=== PATIENT | male | born 1945 | race Caucasian/White ===

== ENCOUNTER 2017-03-23 05:39 | Inpatient (IN) | payer OTHER, MEDICAID ==
[~2017-03-23] VITALS: Ht 172.7 cm; Wt 83.6 kg
[~2017-03-23 05:39] MED LIST: FLO4 PO; GLU5 PO; LOT5 PO; PRE5 PO; ZOC10 PO
[2017-03-23 07:21] LABS: BASOPHIL % 0.4 % (0-2); PLATELET COUNT 199 x10^3mcL (130-400); RED CELL DISTRIBUTION WIDTH 13.5 % (11.5-14.5)
[2017-03-23 08:19] LABS: CALCIUM 8.9 mg/dL (8.5-10.1); CARBON DIOXIDE 25.1 mmol/L (21-32); CHLORIDE SERUM 101 mmol/L (98-107); GFR1 > 60 mL/min; GLUCOSE SERUM 165 mg/dL (74-106); POTASSIUM SERUM 4.3 mmol/L (3.5-5.1); SODIUM SERUM 136 mmol/L (136-145)
[2017-03-23 08:23] LABS: ALBUMIN 3.5 g/dL (3.4-5.0); ALKALINE PHOSPHATASE 77 U/L (46-116); ALT/SGPT 18 U/L (16-63); AMYLASE 61 U/L (25-115); AST/SGOT 24 U/L (15-37); BILIRUBIN TOTAL 0.4 mg/dL (0.20-1.00); LIPASE 276 IU/L (73-393); TOTAL PROTEIN, SERUM 7.9 g/dL (6.4-8.2)
[2017-03-23 10:08] LABS: microscopic required? YES; urine erythrocyte TRACE (NEGATIVE)
[2017-03-23 10:17] LABS: CHOLESTEROL/HDL RATIO 2.8; MAGNESIUM 1.9 mg/dL (1.8-2.4); PHOSPHOROUS 2.4 mg/dL (2.5-4.9)
[2017-03-23 10:18] LABS: AMPHETAMINE QUAL UR NONE DETECTED (NEG <=1000)
[2017-03-23 10:24] LABS: T3 TOTAL 0.83 ng/mL
[2017-03-23 10:25] LABS: FREE T4 1.07 ng/dL (0.76-1.46); FREE THYROXINE INDEX 2.5 ug/dL (1.4-4.5); T4(THYROXINE) 6.7 ug/dL (4.7-13.3)
[2017-03-23 10:36] VITALS: BP 131/83
[2017-03-23 10:37] VITALS: BP 131/83
[2017-03-23 13:56] VITALS: BP 164/93
[2017-03-23 16:09] VITALS: BP 124/74
[2017-03-23 17:36] VITALS: BP 136/77
[2017-03-23 20:42] VITALS: BP 120/68
[2017-03-24 05:50] VITALS: BP 154/77
== END 2017-03-24 07:55 | disposition left against medical advice (07) | DRG 444 ==
LOC: ED 05:39 → DU 09:05
PROVIDERS: Emergency Medicine; ADMIT Family Medicine
DX: K80.20 Calculus of gallbladder without cholecystitis without obstruction (principal); N17.0 Acute kidney failure with tubular necrosis; I16.0 Hypertensive urgency; E11.65 Type 2 diabetes mellitus with hyperglycemia; E78.5 Hyperlipidemia, unspecified; M19.90 Unspecified osteoarthritis, unspecified site; Z68.28 Body mass index [BMI] 28.0-28.9, adult; Z85.72 Personal history of non-Hodgkin lymphomas; Z79.52 Long term (current) use of systemic steroids; Z53.29 Procedure and treatment not carried out because of patient's decision for other reasons
CPT/HCPCS: 82962; 83880; 84439; J2270; J2405; J7030; Q0092